=== PATIENT | male | born 1975 | race Caucasian/White ===

== ENCOUNTER 2021-10-01 17:22 | Inpatient (IN) | payer MEDICARE, OTHER ==
[~2021-10-01] VITALS: Ht 182.9 cm; Wt 146.5 kg
[2021-10-01 18:31] LABS: BASOPHILS % (AUTO) 0.3 % (0.0-2.0); EOSINOPHILS % (AUTO) 0.4 % (0.0-6.0); HEMATOCRIT 37 % (39-51); HEMOGLOBIN 11.9 g/dL (13.5-17.5); LYMPHOCYTES # (AUTO) 0.4 K/uL (0.8-4.8); LYMPHOCYTES % (AUTO) 5.4 % (20.0-44.0); MEAN CORPUSCULAR HGB CONC 32 g/dl (31.0-36.0); MEAN CORPUSCULAR VOLUME 92 fL (80-96); MONOCYTES # (AUTO) 0.7 K/uL (0.1-1.30); MONOCYTES % (AUTO) 9.8 % (2.0-12.0); NEUTROPHILS # (AUTO) 6.1 K/uL (1.8-8.9); NEUTROPHILS % (AUTO) 84.1 % (43.0-81.0); PLATELET COUNT (AUTO) 252 K/uL (150-450); RED BLOOD CELL COUNT(AUTO) 4.02 MIL/uL (4.5-6.0); WHITE BLOOD COUNT (AUTO) 7.2 K/uL (4.3-11.0)
[2021-10-01 18:49] LABS: ALBUMIN 2.2 g/dL (3.4-5.0); ALKALINE PHOSPHATASE 101 U/L (46-116); ASPARTATE AMINOTRANSFERASE 11 U/L (15-37); BILIRUBIN,DIRECT 1.1 mg/dL (0.0-0.2); BILIRUBIN,TOTAL 1.8 mg/dL (0.2-1.0); CALCIUM, SERUM 8.7 mg/dL (8.5-10.1); CARBON DIOXIDE 27 mmol/L (21-32); CHLORIDE 104 mmol/L (98-107); CREATININE 3.2 mg/dL (0.6-1.3); GLUCOSE 84 mg/dL (74-106); LIPASE 19 U/L (73-393); POTASSIUM 3.4 mmol/L (3.5-5.1); SODIUM SERUM 134 mmol/L (136-145); TOTAL PROTEIN, SERUM 7.5 g/dL (6.4-8.2); UREA NITROGEN, BLOOD 17 mg/dL (7-18)
[2021-10-01 19:03] LABS: ALANINE AMINOTRANSFERASE < 6 U/L (12-78)
[2021-10-01] MEDS ORDERED: Z GUARD REMEDY 4 OZ OINT TP PRN (21:30)
[2021-10-02] MEDS ORDERED: LORAZEPAM INJ 2 MG/ML VIAL ONE (02:28)
[2021-10-02] MEDS ORDERED: LORAZEPAM INJ 2 MG/ML VIAL IV ONE (02:30)
[2021-10-02] MEDS ORDERED: PIPERACILLIN /TAZOBACTAM 3.375 G VIAL IV ONE (02:42)
[2021-10-02] MEDS ORDERED: PIPERACILLIN /TAZOBACTAM 3.375 G in IV D5W 50 ML IV SCH ×2 (03:00→12:00)
[2021-10-02 05:22] LABS: BASOPHILS % (AUTO) 0.7 % (0.0-2.0); EOSINOPHILS % (AUTO) 0.5 % (0.0-6.0); HEMATOCRIT 35 % (39-51); HEMOGLOBIN 11.1 g/dL (13.5-17.5); LYMPHOCYTES # (AUTO) 0.4 K/uL (0.8-4.8); LYMPHOCYTES % (AUTO) 5.8 % (20.0-44.0); MEAN CORPUSCULAR HGB CONC 32 g/dl (31.0-36.0); MEAN CORPUSCULAR VOLUME 93 fL (80-96); MONOCYTES # (AUTO) 0.7 K/uL (0.1-1.30); MONOCYTES % (AUTO) 10.9 % (2.0-12.0); NEUTROPHILS % (AUTO) 82.1 % (43.0-81.0); PLATELET COUNT (AUTO) 229 K/uL (150-450); RED BLOOD CELL COUNT(AUTO) 3.81 MIL/uL (4.5-6.0); WHITE BLOOD COUNT (AUTO) 6.1 K/uL (4.3-11.0)
[2021-10-02 05:37] LABS: ALKALINE PHOSPHATASE 94 U/L (46-116); ASPARTATE AMINOTRANSFERASE 12 U/L (15-37); CALCIUM, SERUM 8.6 mg/dL (8.5-10.1); CARBON DIOXIDE 24 mmol/L (21-32); CHLORIDE 104 mmol/L (98-107); CREATININE 3.6 mg/dL (0.6-1.3); GLUCOSE 90 mg/dL (74-106); MAGNESIUM 2.3 mg/dL (1.8-2.4); PHOSPHORUS 1.7 mg/dL (2.5-4.9); POTASSIUM 3.3 mmol/L (3.5-5.1); SODIUM SERUM 134 mmol/L (136-145); TOTAL PROTEIN, SERUM 6.9 g/dL (6.4-8.2); UREA NITROGEN, BLOOD 21 mg/dL (7-18)
[2021-10-02 05:57] LABS: ALANINE AMINOTRANSFERASE < 6 U/L (12-78)
[2021-10-02] MEDS ORDERED: IPRA3AMP23 IH (08:44)
[2021-10-02] MEDS ORDERED: CALC1TAB30 PO (08:44)
[2021-10-02] MEDS ORDERED: CHOL200013 PO (08:44)
[2021-10-02] MEDS ORDERED: MONT10TA22 PO (08:44)
[2021-10-02] MEDS ORDERED: POLY17PO4 PO (08:44)
[2021-10-02] MEDS ORDERED: GLYC2TAB21 PO (08:44)
[2021-10-02] MEDS ORDERED: FOLI0.8C PO (08:44)
[2021-10-02] MEDS ORDERED: FAMO20TA8 PO (08:44)
[2021-10-02] MEDS ORDERED: METO25TA4 PO (08:44)
[2021-10-02] MEDS ORDERED: SEVE800T8 PO (08:44)
[2021-10-02] MEDS ORDERED: VIT1TABL46 PO (08:44)
[2021-10-02] MEDS ORDERED: BUPR100T5 PO (08:44)
[2021-10-02] MEDS ORDERED: SERT100T PO (08:44)
[2021-10-02] MEDS ORDERED: FERR325T23 PO (08:44)
[2021-10-02] MEDS ORDERED: FAMOTIDINE/PF INJ 20 MG/2 ML VIAL IV SCH (09:00)
[2021-10-02] MEDS ORDERED: FAMOTIDINE/PF INJ 20 MG/2 ML VIAL IV ONE (09:04)
[2021-10-02] MEDS ORDERED: HEPARIN SODIUM, PORCINE 5000 UNITS/1 ML VIAL ONE (09:04)
[2021-10-02] MEDS: ZOSYN IVPB 2.25 G in IV D5W 50ml IV SCH ×3 (09:12→21:00)
[2021-10-02] MEDS: HEPARIN SODIUM, PORCINE 5000 UNITS/1 ML VIAL SQ SCH ×2 (09:13→21:00)
[2021-10-02] MEDS ORDERED: POTASSIUM CHLORIDE 20 MEQ TAB.PRT.SR PO ONE ×2 (11:22→11:30)
[2021-10-02] MEDS: METOPROLOL SUCCINATE 25 MG TAB.SR.24H PO SCH (11:24)
[2021-10-02] MEDS ORDERED: Medication Not On Formulary EA (Ipratropium/Albuterol Sulfate (Duoneb 2.5-0.5 Mg/3 Ml So IH SCH (12:00)
[2021-10-02] MEDS: ACETYLCYSTEINE 10% SOLN 400 MG/4 ML VIAL NEB SCH ×3 (12:53→19:59)
[2021-10-02] MEDS: ALBUTEROL FS 2.5 MG/3 ML VIAL.NEB NEB SCH ×2 (14:37→19:59)
[2021-10-02] MEDS: IPRATROPIUM NEB FS 0.5 MG/2.5 ML AMPUL.NEB NEB SCH ×2 (14:37→19:59)
[2021-10-02 16:00] VITALS: BP 132/77
[2021-10-02] MEDS ORDERED: Medication Not On Formulary EA (Glycopyrrolate 1 MG) PO SCH (17:00)
[2021-10-02] MEDS: GLYCOPYRROLATE 1 MG TABLET PO SCH (17:03)
[2021-10-02 20:00] VITALS: BP_SYST 114; BP_SYST 120; BP_DIAS 85; BP_DIAS 90
[2021-10-02] MEDS: MONTELUKAST SODIUM (10MG) 10 MG TABLET PO SCH (21:06)
[2021-10-02] MEDS ORDERED: ALTEPLASE CATHFLO 2 MG/VIAL XX ONE (21:30)
[2021-10-03] VITALS: BP_SYST 109; BP_SYST 118; BP_DIAS 72
[2021-10-03] MEDS: ACETYLCYSTEINE 10% SOLN 400 MG/4 ML VIAL NEB SCH ×4 (02:00→20:21)
[2021-10-03] MEDS: ALBUTEROL FS 2.5 MG/3 ML VIAL.NEB NEB SCH ×4 (02:00→20:21)
[2021-10-03] MEDS: IPRATROPIUM NEB FS 0.5 MG/2.5 ML AMPUL.NEB NEB SCH ×4 (02:01→20:21)
[2021-10-03] MEDS: ZOSYN IVPB 2.25 G in IV D5W 50ml IV SCH ×4 (03:21→21:43)
[2021-10-03 04:00] VITALS: BP 113/82
[2021-10-03] MEDS: ONDANSETRON HCL/PF 4 MG/2 ML VIAL IVP PRN ×2 (05:14→17:10)
[2021-10-03 07:10] LABS: BASOPHILS # (AUTO) 0.1 K/uL (0.0-0.2); BASOPHILS % (AUTO) 0.9 % (0.0-2.0); EOSINOPHILS % (AUTO) 0.7 % (0.0-6.0); HEMATOCRIT 34 % (39-51); LYMPHOCYTES # (AUTO) 0.4 K/uL (0.8-4.8); LYMPHOCYTES % (AUTO) 4.7 % (20.0-44.0); MEAN CORPUSCULAR HGB CONC 32 g/dl (31.0-36.0); MEAN CORPUSCULAR VOLUME 92 fL (80-96); MONOCYTES # (AUTO) 0.8 K/uL (0.1-1.30); MONOCYTES % (AUTO) 10.1 % (2.0-12.0); NEUTROPHILS # (AUTO) 6.7 K/uL (1.8-8.9); NEUTROPHILS % (AUTO) 83.6 % (43.0-81.0); PLATELET COUNT (AUTO) 246 K/uL (150-450); RED BLOOD CELL COUNT(AUTO) 3.72 MIL/uL (4.5-6.0)
[2021-10-03 07:19] LABS: CALCIUM, SERUM 8.9 mg/dL (8.5-10.1); CREATININE 4.2 mg/dL (0.6-1.3); MAGNESIUM 2.3 mg/dL (1.8-2.4); PHOSPHORUS 1.8 mg/dL (2.5-4.9); POTASSIUM 3.3 mmol/L (3.5-5.1)
[2021-10-03 08:00] VITALS: BP 112/67
[2021-10-03] MEDS ORDERED: SERTRALINE HCL 150 MG PO SCH (09:00)
[2021-10-03] MEDS ORDERED: CHOLECALCIFEROL PO SCH (09:00)
[2021-10-03] MEDS ORDERED: Medication Not On Formulary EA (Calcium Carbonate/Vitamin D3 (Os-Cal 500+D Tablet) 1 EAC PO SCH (09:00)
[2021-10-03] MEDS: HEPARIN SODIUM, PORCINE 5000 UNITS/1 ML VIAL SQ SCH ×2 (09:19→21:00)
[2021-10-03] MEDS: buPROPion 75 MG TABLET PO SCH (09:20)
[2021-10-03] MEDS: GLYCOPYRROLATE 1 MG TABLET PO SCH ×2 (09:20→16:00)
[2021-10-03] MEDS: POLYETHYLENE GLYCOL 3350 17 GM POWD.PACK PO SCH (09:21)
[2021-10-03] MEDS: VIT B CMPLX 3/FA/VIT C/BIOTIN 1 TAB TABLET PO SCH (09:21)
[2021-10-03] MEDS: SERTRALINE HCL 50 MG TABLET PO SCH (09:21)
[2021-10-03] MEDS: CALCIUM CARB 250MG /VITAMIN D 1 UDTAB PO SCH (09:22)
[2021-10-03] MEDS: FAMOTIDINE (20 MG) 20 MG TABLET PO SCH (09:22)
[2021-10-03] MEDS: FOLIC ACID 1 MG TABLET PO SCH (09:22)
[2021-10-03] MEDS: CHOLECALCIFEROL 1,000 UNIT TABLET (VIT D3) PO SCH (09:24)
[2021-10-03] MEDS: FERROUS SULFATE (325 MG) 325 MG/TAB TABLET PO SCH (09:27)
[2021-10-03] MEDS ORDERED: K PHOS NEUTRAL 250 MG TABLET PO ONE (11:00)
[2021-10-03] MEDS ORDERED: POTASSIUM PHOSPHATE MM 15 MMOL in IV NS 0.9% 250 ML IV SCH (11:00)
[2021-10-03 12:00] VITALS: BP 111/67
[2021-10-03 16:00] VITALS: BP 131/72
[2021-10-03 20:00] VITALS: BP 125/56
[2021-10-03] MEDS: MONTELUKAST SODIUM (10MG) 10 MG TABLET PO SCH (21:43)
[2021-10-04] VITALS: BP 132/66
[2021-10-04] MEDS: ALBUTEROL FS 2.5 MG/3 ML VIAL.NEB NEB SCH ×4 (01:42→20:38)
[2021-10-04] MEDS: ACETYLCYSTEINE 10% SOLN 400 MG/4 ML VIAL NEB SCH ×4 (01:42→20:37)
[2021-10-04] MEDS: IPRATROPIUM NEB FS 0.5 MG/2.5 ML AMPUL.NEB NEB SCH ×4 (01:43→20:37)
[2021-10-04] MEDS: ZOSYN IVPB 2.25 G in IV D5W 50ml IV SCH ×4 (02:57→21:23)
[2021-10-04 04:00] VITALS: BP 119/71
[2021-10-04 08:00] VITALS: BP 113/52
[2021-10-04 08:11] LABS: CALCIUM, SERUM 8.8 mg/dL (8.5-10.1); CREATININE 4.7 mg/dL (0.6-1.3); PHOSPHORUS 2.1 mg/dL (2.5-4.9); POTASSIUM 3.5 mmol/L (3.5-5.1)
[2021-10-04] MEDS: HEPARIN SODIUM, PORCINE 5000 UNITS/1 ML VIAL SQ SCH ×2 (08:18→21:00)
[2021-10-04] MEDS: VIT B CMPLX 3/FA/VIT C/BIOTIN 1 TAB TABLET PO SCH (08:19)
[2021-10-04] MEDS: SERTRALINE HCL 50 MG TABLET PO SCH (08:19)
[2021-10-04] MEDS: CALCIUM CARB 250MG /VITAMIN D 1 UDTAB PO SCH (08:19)
[2021-10-04] MEDS: POLYETHYLENE GLYCOL 3350 17 GM POWD.PACK PO SCH (08:19)
[2021-10-04] MEDS: FERROUS SULFATE (325 MG) 325 MG/TAB TABLET PO SCH (08:19)
[2021-10-04] MEDS: CHOLECALCIFEROL 1,000 UNIT TABLET (VIT D3) PO SCH (08:19)
[2021-10-04] MEDS: FAMOTIDINE (20 MG) 20 MG TABLET PO SCH (08:20)
[2021-10-04] MEDS: FOLIC ACID 1 MG TABLET PO SCH (08:20)
[2021-10-04] MEDS: METOPROLOL SUCCINATE 25 MG TAB.SR.24H PO SCH (08:20)
[2021-10-04] MEDS: GLYCOPYRROLATE 1 MG TABLET PO SCH ×2 (08:21→16:14)
[2021-10-04] MEDS: buPROPion 75 MG TABLET PO SCH (08:21)
[2021-10-04 09:11] LABS: BASOPHILS # (AUTO) 0.1 K/uL (0.0-0.2); BASOPHILS % (AUTO) 0.9 % (0.0-2.0); EOSINOPHILS % (AUTO) 1.3 % (0.0-6.0); HEMATOCRIT 33 % (39-51); HEMOGLOBIN 10.3 g/dL (13.5-17.5); LYMPHOCYTES # (AUTO) 0.4 K/uL (0.8-4.8); LYMPHOCYTES % (AUTO) 5.5 % (20.0-44.0); MEAN CORPUSCULAR HGB CONC 31 g/dl (31.0-36.0); MEAN CORPUSCULAR VOLUME 92 fL (80-96); MONOCYTES # (AUTO) 0.7 K/uL (0.1-1.30); MONOCYTES % (AUTO) 10.7 % (2.0-12.0); NEUTROPHILS # (AUTO) 5.5 K/uL (1.8-8.9); NEUTROPHILS % (AUTO) 81.6 % (43.0-81.0); PLATELET COUNT (AUTO) 221 K/uL (150-450); RED BLOOD CELL COUNT(AUTO) 3.55 MIL/uL (4.5-6.0); WHITE BLOOD COUNT (AUTO) 6.8 K/uL (4.3-11.0)
[2021-10-04] MEDS: POTASSIUM PHOSPHATE MM 15 MMOL in IV NS 0.9% 250 ML IV SCH ×2 (10:50→13:54)
[2021-10-04 12:00] VITALS: BP 125/69
[2021-10-04] MEDS ORDERED: ALBUMIN 25% 25 GM in PREMIX 1 EA IV STA (13:03)
[2021-10-04] MEDS: ONDANSETRON HCL/PF 4 MG/2 ML VIAL IVP PRN (14:32)
[2021-10-04 16:00] VITALS: BP 105/69
[2021-10-04] MEDS: CLOTRIMAZOLE 1% 15 GM TUBE TP SCH (16:14)
[2021-10-04 20:00] VITALS: BP 120/67
[2021-10-04] MEDS: MONTELUKAST SODIUM (10MG) 10 MG TABLET PO SCH (21:24)
[2021-10-05] VITALS: BP 115/69
[2021-10-05] MEDS: ALBUTEROL FS 2.5 MG/3 ML VIAL.NEB NEB SCH ×4 (02:25→21:03)
[2021-10-05] MEDS: IPRATROPIUM NEB FS 0.5 MG/2.5 ML AMPUL.NEB NEB SCH ×4 (02:25→21:03)
[2021-10-05] MEDS: ACETYLCYSTEINE 10% SOLN 400 MG/4 ML VIAL NEB SCH ×4 (02:26→21:03)
[2021-10-05] MEDS: ZOSYN IVPB 2.25 G in IV D5W 50ml IV SCH ×4 (03:11→21:14)
[2021-10-05 04:00] VITALS: BP 117/61
[2021-10-05 07:23] LABS: BASOPHILS # (AUTO) 0.1 K/uL (0.0-0.2); BASOPHILS % (AUTO) 0.8 % (0.0-2.0); EOSINOPHILS % (AUTO) 1.4 % (0.0-6.0); HEMATOCRIT 32 % (39-51); HEMOGLOBIN 10.3 g/dL (13.5-17.5); LYMPHOCYTES # (AUTO) 0.4 K/uL (0.8-4.8); LYMPHOCYTES % (AUTO) 5.2 % (20.0-44.0); MEAN CORPUSCULAR HGB CONC 33 g/dl (31.0-36.0); MEAN CORPUSCULAR VOLUME 92 fL (80-96); MONOCYTES # (AUTO) 0.9 K/uL (0.1-1.30); MONOCYTES % (AUTO) 12.4 % (2.0-12.0); NEUTROPHILS # (AUTO) 5.9 K/uL (1.8-8.9); NEUTROPHILS % (AUTO) 80.2 % (43.0-81.0); PLATELET COUNT (AUTO) 250 K/uL (150-450); RED BLOOD CELL COUNT(AUTO) 3.42 MIL/uL (4.5-6.0); WHITE BLOOD COUNT (AUTO) 7.4 K/uL (4.3-11.0)
[2021-10-05 07:38] LABS: BILIRUBIN,TOTAL 1.8 mg/dL (0.2-1.0); CALCIUM, SERUM 8.4 mg/dL (8.5-10.1); CREATININE 4.3 mg/dL (0.6-1.3); POTASSIUM 3.6 mmol/L (3.5-5.1); TOTAL PROTEIN, SERUM 6.6 g/dL (6.4-8.2)
[2021-10-05 08:00] VITALS: BP 100/53
[2021-10-05] MEDS: HEPARIN SODIUM, PORCINE 5000 UNITS/1 ML VIAL SQ SCH ×2 (09:00→21:17)
[2021-10-05] MEDS: buPROPion 75 MG TABLET PO SCH (09:00)
[2021-10-05] MEDS: FOLIC ACID 1 MG TABLET PO SCH (09:00)
[2021-10-05] MEDS: SERTRALINE HCL 50 MG TABLET PO SCH (09:00)
[2021-10-05] MEDS: POLYETHYLENE GLYCOL 3350 17 GM POWD.PACK PO SCH (09:00)
[2021-10-05] MEDS: VIT B CMPLX 3/FA/VIT C/BIOTIN 1 TAB TABLET PO SCH (09:00)
[2021-10-05] MEDS: FERROUS SULFATE (325 MG) 325 MG/TAB TABLET PO SCH (09:00)
[2021-10-05] MEDS: CHOLECALCIFEROL 1,000 UNIT TABLET (VIT D3) PO SCH (09:00)
[2021-10-05] MEDS: FAMOTIDINE (20 MG) 20 MG TABLET PO SCH (09:00)
[2021-10-05] MEDS: CALCIUM CARB 250MG /VITAMIN D 1 UDTAB PO SCH (09:00)
[2021-10-05] MEDS: GLYCOPYRROLATE 1 MG TABLET PO SCH ×2 (09:00→16:12)
[2021-10-05] MEDS: CLOTRIMAZOLE 1% 15 GM TUBE TP SCH ×2 (10:50→16:24)
[2021-10-05 12:00] VITALS: BP 106/63
[2021-10-05 16:00] VITALS: BP 108/56
[2021-10-05 20:00] VITALS: BP 112/53
[2021-10-05] MEDS: MONTELUKAST SODIUM (10MG) 10 MG TABLET PO SCH (21:17)
[2021-10-06] MEDS: ACETYLCYSTEINE 10% SOLN 400 MG/4 ML VIAL NEB SCH ×4 (01:30→19:30)
[2021-10-06] MEDS: IPRATROPIUM NEB FS 0.5 MG/2.5 ML AMPUL.NEB NEB SCH ×4 (01:30→19:30)
[2021-10-06] MEDS: ALBUTEROL FS 2.5 MG/3 ML VIAL.NEB NEB SCH ×4 (01:30→19:30)
[2021-10-06] MEDS: ZOSYN IVPB 2.25 G in IV D5W 50ml IV SCH ×4 (02:34→20:05)
[2021-10-06 07:13] LABS: ALANINE AMINOTRANSFERASE < 6 U/L (12-78); ALBUMIN 1.6 g/dL (3.4-5.0); ALKALINE PHOSPHATASE 65 U/L (46-116); ASPARTATE AMINOTRANSFERASE 10 U/L (15-37); BILIRUBIN,TOTAL 1.6 mg/dL (0.2-1.0); CARBON DIOXIDE 26 mmol/L (21-32); CHLORIDE 103 mmol/L (98-107); CREATININE 4.9 mg/dL (0.6-1.3); GLUCOSE 81 mg/dL (74-106); MAGNESIUM 2.2 mg/dL (1.8-2.4); PHOSPHORUS 2.9 mg/dL (2.5-4.9); POTASSIUM 3.4 mmol/L (3.5-5.1); SODIUM SERUM 136 mmol/L (136-145); TOTAL PROTEIN, SERUM 5.6 g/dL (6.4-8.2); UREA NITROGEN, BLOOD 35 mg/dL (7-18)
[2021-10-06 07:15] LABS: BASOPHILS # (AUTO) 0.1 K/uL (0.0-0.2); BASOPHILS % (AUTO) 0.9 % (0.0-2.0); EOSINOPHILS % (AUTO) 1.3 % (0.0-6.0); HEMATOCRIT 30 % (39-51); HEMOGLOBIN 9.7 g/dL (13.5-17.5); LYMPHOCYTES # (AUTO) 0.4 K/uL (0.8-4.8); LYMPHOCYTES % (AUTO) 6.3 % (20.0-44.0); MEAN CORPUSCULAR HGB CONC 33 g/dl (31.0-36.0); MEAN CORPUSCULAR VOLUME 91 fL (80-96); MONOCYTES # (AUTO) 0.8 K/uL (0.1-1.30); MONOCYTES % (AUTO) 13.8 % (2.0-12.0); NEUTROPHILS # (AUTO) 4.7 K/uL (1.8-8.9); NEUTROPHILS % (AUTO) 77.7 % (43.0-81.0); PLATELET COUNT (AUTO) 209 K/uL (150-450); RED BLOOD CELL COUNT(AUTO) 3.24 MIL/uL (4.5-6.0); WHITE BLOOD COUNT (AUTO) 6.1 K/uL (4.3-11.0)
[2021-10-06 08:00] VITALS: BP 142/60
[2021-10-06] MEDS: CHOLECALCIFEROL 1,000 UNIT TABLET (VIT D3) PO SCH (09:22)
[2021-10-06] MEDS: CALCIUM CARB 250MG /VITAMIN D 1 UDTAB PO SCH (09:23)
[2021-10-06] MEDS: FOLIC ACID 1 MG TABLET PO SCH (09:23)
[2021-10-06] MEDS: VIT B CMPLX 3/FA/VIT C/BIOTIN 1 TAB TABLET PO SCH (09:23)
[2021-10-06] MEDS: FERROUS SULFATE (325 MG) 325 MG/TAB TABLET PO SCH (09:23)
[2021-10-06] MEDS: SERTRALINE HCL 50 MG TABLET PO SCH (09:23)
[2021-10-06] MEDS: buPROPion 75 MG TABLET PO SCH (09:23)
[2021-10-06] MEDS: FAMOTIDINE (20 MG) 20 MG TABLET PO SCH (09:23)
[2021-10-06] MEDS: GLYCOPYRROLATE 1 MG TABLET PO SCH ×2 (09:23→17:09)
[2021-10-06] MEDS: POLYETHYLENE GLYCOL 3350 17 GM POWD.PACK PO SCH (09:24)
[2021-10-06] MEDS: HEPARIN SODIUM, PORCINE 5000 UNITS/1 ML VIAL SQ SCH ×2 (09:25→20:09)
[2021-10-06] MEDS: CLOTRIMAZOLE 1% 15 GM TUBE TP SCH ×2 (09:28→17:11)
[2021-10-06] MEDS: METOPROLOL SUCCINATE 25 MG TAB.SR.24H PO SCH (09:31)
[2021-10-06 12:00] VITALS: BP 109/52
[2021-10-06 19:04] VITALS: BP 106/50
[2021-10-06 20:00] VITALS: BP 117/60
[2021-10-06] MEDS ORDERED: ALBUMIN 25% 25 GM in PREMIX 1 EA IV ONE (22:30)
[2021-10-06] MEDS ORDERED: ALBUMIN 25% 100 ML IV ONE (22:32)
[2021-10-07] MEDS: MONTELUKAST SODIUM (10MG) 10 MG TABLET PO SCH ×2 (01:07→21:07)
[2021-10-07] MEDS: ACETAMINOPHEN 325 MG TABLET PO PRN (01:07)
[2021-10-07] MEDS: IPRATROPIUM NEB FS 0.5 MG/2.5 ML AMPUL.NEB NEB SCH ×4 (01:28→19:30)
[2021-10-07] MEDS: ACETYLCYSTEINE 10% SOLN 400 MG/4 ML VIAL NEB SCH ×4 (01:28→19:30)
[2021-10-07] MEDS: ALBUTEROL FS 2.5 MG/3 ML VIAL.NEB NEB SCH ×4 (01:28→19:30)
[2021-10-07] MEDS: ZOSYN IVPB 2.25 G in IV D5W 50ml IV SCH ×4 (03:44→20:33)
[2021-10-07 07:15] LABS: CALCIUM, SERUM 8.7 mg/dL (8.5-10.1); MAGNESIUM 2.3 mg/dL (1.8-2.4); PHOSPHORUS 2.8 mg/dL (2.5-4.9); POTASSIUM 3.4 mmol/L (3.5-5.1)
[2021-10-07 07:35] LABS: BASOPHILS # (AUTO) 0.1 K/uL (0.0-0.2); BASOPHILS % (AUTO) 1.1 % (0.0-2.0); EOSINOPHILS % (AUTO) 1.1 % (0.0-6.0); HEMATOCRIT 29 % (39-51); HEMOGLOBIN 9.4 g/dL (13.5-17.5); LYMPHOCYTES # (AUTO) 0.4 K/uL (0.8-4.8); LYMPHOCYTES % (AUTO) 5.5 % (20.0-44.0); MEAN CORPUSCULAR HGB CONC 33 g/dl (31.0-36.0); MEAN CORPUSCULAR VOLUME 92 fL (80-96); MONOCYTES # (AUTO) 0.8 K/uL (0.1-1.30); MONOCYTES % (AUTO) 12.6 % (2.0-12.0); NEUTROPHILS # (AUTO) 5.1 K/uL (1.8-8.9); NEUTROPHILS % (AUTO) 79.7 % (43.0-81.0); PLATELET COUNT (AUTO) 193 K/uL (150-450); RED BLOOD CELL COUNT(AUTO) 3.13 MIL/uL (4.5-6.0); WHITE BLOOD COUNT (AUTO) 6.5 K/uL (4.3-11.0)
[2021-10-07 08:00] VITALS: BP 101/54
[2021-10-07] MEDS: POLYETHYLENE GLYCOL 3350 17 GM POWD.PACK PO SCH (09:10)
[2021-10-07] MEDS: SERTRALINE HCL 50 MG TABLET PO SCH (09:10)
[2021-10-07] MEDS: VIT B CMPLX 3/FA/VIT C/BIOTIN 1 TAB TABLET PO SCH (09:11)
[2021-10-07] MEDS: FOLIC ACID 1 MG TABLET PO SCH (09:11)
[2021-10-07] MEDS: buPROPion 75 MG TABLET PO SCH (09:11)
[2021-10-07] MEDS: FERROUS SULFATE (325 MG) 325 MG/TAB TABLET PO SCH (09:11)
[2021-10-07] MEDS: CALCIUM CARB 250MG /VITAMIN D 1 UDTAB PO SCH (09:11)
[2021-10-07] MEDS: CHOLECALCIFEROL 1,000 UNIT TABLET (VIT D3) PO SCH (09:11)
[2021-10-07] MEDS: GLYCOPYRROLATE 1 MG TABLET PO SCH ×2 (09:11→17:20)
[2021-10-07] MEDS: FAMOTIDINE (20 MG) 20 MG TABLET PO SCH (09:11)
[2021-10-07] MEDS: HEPARIN SODIUM, PORCINE 5000 UNITS/1 ML VIAL SQ SCH (09:14)
[2021-10-07] MEDS: CLOTRIMAZOLE 1% 15 GM TUBE TP SCH ×2 (09:50→17:20)
[2021-10-07] MEDS ORDERED: POTASSIUM CHLORIDE 20 MEQ TAB.PRT.SR PO ONE (13:00)
[2021-10-07 18:08] LABS: THYROID STIMULATING HORMONE 1.736 uIU/mL (0.358-3.74)
[2021-10-07 20:00] VITALS: BP 110/62
[2021-10-08] VITALS (25 sets, daily range): BP systolic 91–137; BP diastolic 41–73
[2021-10-08] MEDS: IPRATROPIUM NEB FS 0.5 MG/2.5 ML AMPUL.NEB NEB SCH ×4 (02:13→19:26)
[2021-10-08] MEDS: ALBUTEROL FS 2.5 MG/3 ML VIAL.NEB NEB SCH ×4 (02:13→19:26)
[2021-10-08] MEDS: ACETYLCYSTEINE 10% SOLN 400 MG/4 ML VIAL NEB SCH ×4 (02:14→19:26)
[2021-10-08] MEDS: ZOSYN IVPB 2.25 G in IV D5W 50ml IV SCH ×4 (03:35→20:55)
[2021-10-08 07:42] LABS: BASOPHILS % (AUTO) 0.6 % (0.0-2.0); EOSINOPHILS % (AUTO) 0.8 % (0.0-6.0); HEMATOCRIT 31 % (39-51); HEMOGLOBIN 9.7 g/dL (13.5-17.5); LYMPHOCYTES # (AUTO) 0.2 K/uL (0.8-4.8); LYMPHOCYTES % (AUTO) 3.5 % (20.0-44.0); MEAN CORPUSCULAR HGB CONC 32 g/dl (31.0-36.0); MEAN CORPUSCULAR VOLUME 93 fL (80-96); MONOCYTES # (AUTO) 0.9 K/uL (0.1-1.30); MONOCYTES % (AUTO) 12.6 % (2.0-12.0); NEUTROPHILS # (AUTO) 5.6 K/uL (1.8-8.9); NEUTROPHILS % (AUTO) 82.5 % (43.0-81.0); PLATELET COUNT (AUTO) 209 K/uL (150-450); RED BLOOD CELL COUNT(AUTO) 3.28 MIL/uL (4.5-6.0); WHITE BLOOD COUNT (AUTO) 6.8 K/uL (4.3-11.0)
[2021-10-08 08:06] LABS: IMMUNOGLOBULIN A, SERUM 466 mg/dL (90-386); IMMUNOGLOBULIN G, SERUM 1733 mg/dL (603-1613); IMMUNOGLOBULIN M, SERUM 133 mg/dL (20-172)
[2021-10-08] MEDS: GLYCOPYRROLATE 1 MG TABLET PO SCH ×2 (08:08→16:46)
[2021-10-08] MEDS: FERROUS SULFATE (325 MG) 325 MG/TAB TABLET PO SCH (08:09)
[2021-10-08] MEDS: FOLIC ACID 1 MG TABLET PO SCH (08:09)
[2021-10-08] MEDS: FAMOTIDINE (20 MG) 20 MG TABLET PO SCH (08:12)
[2021-10-08] MEDS: SERTRALINE HCL 50 MG TABLET PO SCH (08:12)
[2021-10-08] MEDS: CHOLECALCIFEROL 1,000 UNIT TABLET (VIT D3) PO SCH (08:12)
[2021-10-08] MEDS: CALCIUM CARB 250MG /VITAMIN D 1 UDTAB PO SCH (08:12)
[2021-10-08] MEDS: buPROPion 75 MG TABLET PO SCH (08:12)
[2021-10-08] MEDS: VIT B CMPLX 3/FA/VIT C/BIOTIN 1 TAB TABLET PO SCH (08:12)
[2021-10-08] MEDS: POLYETHYLENE GLYCOL 3350 17 GM POWD.PACK PO SCH (08:12)
[2021-10-08 08:23] LABS: CALCIUM, SERUM 8.4 mg/dL (8.5-10.1); CREATININE 4.4 mg/dL (0.6-1.3); MAGNESIUM 2.2 mg/dL (1.8-2.4); PHOSPHORUS 3.3 mg/dL (2.5-4.9); POTASSIUM 3.3 mmol/L (3.5-5.1)
[2021-10-08] MEDS: CLOTRIMAZOLE 1% 15 GM TUBE TP SCH ×2 (08:32→16:52)
[2021-10-08] MEDS: METOPROLOL SUCCINATE 25 MG TAB.SR.24H PO SCH (09:05)
[2021-10-08] MEDS ORDERED: ANESTHESIA TRAY IN PYXIS 1 EA TRAY MC ONE (09:42)
[2021-10-08] MEDS ORDERED: LIDOCAINE 5% OINT 35.44 GM TUBE ONE (09:43)
[2021-10-08] MEDS ORDERED: POTASSIUM CHLORIDE 20 MEQ TAB.PRT.SR PO SCH (10:30)
[2021-10-08 12:07] LABS: *SPE A/G RATIO 0.6 (0.7-1.7); *SPE ALPHA-1-GLOBULIN 0.3 g/dL (0.0-0.4); *SPE ALPHA-2-GLOBULIN 0.6 g/dL (0.4-1.0); *SPE BETA GLOBULIN 0.6 g/dL (0.7-1.3); *SPE M-SPIKE Not Observed g/dL (Not Observed)
[2021-10-08] MEDS ORDERED: ROCURONIUM BROMIDE 50 MG/5 ML ONE (12:33)
[2021-10-08] MEDS ORDERED: MIDAZOLAM HCL 2 MG/2ML VIAL ONE ×2 (12:33→12:42)
[2021-10-08] MEDS ORDERED: SODIUM BICARBONATE SYR 50 MEQ/50 ML DISP.SYRIN IV ONE (15:22)
[2021-10-08] MEDS ORDERED: EPINEPHRINE (1:10,000) SYRINGE 1 MG/10 ML DISP.SYRIN IVP ONE (15:22)
[2021-10-08] MEDS: MONTELUKAST SODIUM (10MG) 10 MG TABLET PO SCH (21:33)
[2021-10-09] VITALS (32 sets, daily range): BP systolic 66–143; BP diastolic 40–123
[2021-10-09] MEDS: ACETYLCYSTEINE 10% SOLN 400 MG/4 ML VIAL NEB SCH ×4 (01:05→19:51)
[2021-10-09] MEDS: ALBUTEROL FS 2.5 MG/3 ML VIAL.NEB NEB SCH ×4 (01:05→19:51)
[2021-10-09] MEDS: IPRATROPIUM NEB FS 0.5 MG/2.5 ML AMPUL.NEB NEB SCH ×4 (01:05→19:51)
[2021-10-09] MEDS: ZOSYN IVPB 2.25 G in IV D5W 50ml IV SCH ×4 (03:04→21:00)
[2021-10-09 05:20] LABS: BASOPHILS # (AUTO) 0.1 K/uL (0.0-0.2); BASOPHILS % (AUTO) 0.9 % (0.0-2.0); HEMATOCRIT 29 % (39-51); HEMOGLOBIN 9.6 g/dL (13.5-17.5); LYMPHOCYTES # (AUTO) 0.3 K/uL (0.8-4.8); LYMPHOCYTES % (AUTO) 4.4 % (20.0-44.0); MEAN CORPUSCULAR HGB CONC 33 g/dl (31.0-36.0); MEAN CORPUSCULAR VOLUME 92 fL (80-96); MONOCYTES # (AUTO) 0.9 K/uL (0.1-1.30); MONOCYTES % (AUTO) 14.7 % (2.0-12.0); NEUTROPHILS # (AUTO) 4.7 K/uL (1.8-8.9); PLATELET COUNT (AUTO) 207 K/uL (150-450); RED BLOOD CELL COUNT(AUTO) 3.15 MIL/uL (4.5-6.0); WHITE BLOOD COUNT (AUTO) 5.9 K/uL (4.3-11.0)
[2021-10-09 05:23] LABS: CALCIUM, SERUM 8.2 mg/dL (8.5-10.1); CREATININE 3.8 mg/dL (0.6-1.3); PHOSPHORUS 2.8 mg/dL (2.5-4.9); POTASSIUM 3.3 mmol/L (3.5-5.1)
[2021-10-09] MEDS: VIT B CMPLX 3/FA/VIT C/BIOTIN 1 TAB TABLET PO SCH (08:37)
[2021-10-09] MEDS: FAMOTIDINE (20 MG) 20 MG TABLET PO SCH (08:37)
[2021-10-09] MEDS: CHOLECALCIFEROL 1,000 UNIT TABLET (VIT D3) PO SCH (08:37)
[2021-10-09] MEDS: CALCIUM CARB 250MG /VITAMIN D 1 UDTAB PO SCH (08:37)
[2021-10-09] MEDS: GLYCOPYRROLATE 1 MG TABLET PO SCH ×2 (08:37→18:06)
[2021-10-09] MEDS: FERROUS SULFATE (325 MG) 325 MG/TAB TABLET PO SCH (08:37)
[2021-10-09] MEDS: FOLIC ACID 1 MG TABLET PO SCH (08:37)
[2021-10-09] MEDS: SERTRALINE HCL 50 MG TABLET PO SCH (08:37)
[2021-10-09] MEDS: POLYETHYLENE GLYCOL 3350 17 GM POWD.PACK PO SCH (08:38)
[2021-10-09] MEDS: ONDANSETRON HCL/PF 4 MG/2 ML VIAL IVP PRN (08:38)
[2021-10-09] MEDS: CLOTRIMAZOLE 1% 15 GM TUBE TP SCH ×2 (08:40→17:00)
[2021-10-09] MEDS ORDERED: POTASSIUM CHLORIDE 20 MEQ TAB.PRT.SR PO ONE (11:00)
[2021-10-09] MEDS: buPROPion 75 MG TABLET PO SCH (12:25)
[2021-10-09 20:40] LABS: ABG BASE EXCESS -5.9 mmol/L; ABG OXYGEN SATURATION 96.3 % (92.0-98.5); ABG PH 7.292 (7.350-7.450); ABG PO2 89.8 mmHg (75.0-100.0); COHb 0.2 % (0.5-1.5); O2Hb 96.1 % (94.0-97.0); SITE, ABG Right Radial
[2021-10-09] MEDS: ACETAMINOPHEN 325 MG TABLET PO PRN (21:14)
[2021-10-09] MEDS: MONTELUKAST SODIUM (10MG) 10 MG TABLET PO SCH (21:14)
[2021-10-09] MEDS ORDERED: ZOLPIDEM TARTRATE 5 MG TABLET PO ONE (22:00)
[2021-10-10] VITALS (15 sets, daily range): BP systolic 75–121; BP diastolic 33–74
[2021-10-10] MEDS: ALBUTEROL FS 2.5 MG/3 ML VIAL.NEB NEB SCH ×4 (01:28→19:52)
[2021-10-10] MEDS: ACETYLCYSTEINE 10% SOLN 400 MG/4 ML VIAL NEB SCH ×4 (01:29→19:52)
[2021-10-10] MEDS: IPRATROPIUM NEB FS 0.5 MG/2.5 ML AMPUL.NEB NEB SCH ×4 (01:29→19:52)
[2021-10-10] MEDS: ZOSYN IVPB 2.25 G in IV D5W 50ml IV SCH ×4 (02:07→21:54)
[2021-10-10 06:46] LABS: BASOPHILS # (AUTO) 0.1 K/uL (0.0-0.2); BASOPHILS % (AUTO) 1.1 % (0.0-2.0); EOSINOPHILS % (AUTO) 1.3 % (0.0-6.0); HEMATOCRIT 30 % (39-51); HEMOGLOBIN 9.7 g/dL (13.5-17.5); LYMPHOCYTES # (AUTO) 0.3 K/uL (0.8-4.8); LYMPHOCYTES % (AUTO) 4.6 % (20.0-44.0); MEAN CORPUSCULAR HGB CONC 33 g/dl (31.0-36.0); MEAN CORPUSCULAR VOLUME 92 fL (80-96); MONOCYTES # (AUTO) 0.9 K/uL (0.1-1.30); MONOCYTES % (AUTO) 13.5 % (2.0-12.0); NEUTROPHILS # (AUTO) 5.2 K/uL (1.8-8.9); NEUTROPHILS % (AUTO) 79.5 % (43.0-81.0); PLATELET COUNT (AUTO) 247 K/uL (150-450); RED BLOOD CELL COUNT(AUTO) 3.25 MIL/uL (4.5-6.0); WHITE BLOOD COUNT (AUTO) 6.5 K/uL (4.3-11.0)
[2021-10-10 07:20] LABS: CREATININE 4.3 mg/dL (0.6-1.3); PHOSPHORUS 2.6 mg/dL (2.5-4.9); POTASSIUM 3.2 mmol/L (3.5-5.1)
[2021-10-10] MEDS ORDERED: POTASSIUM CHLORIDE 20 MEQ TAB.PRT.SR PO ONE (08:00)
[2021-10-10] MEDS: FOLIC ACID 1 MG TABLET PO SCH (08:38)
[2021-10-10] MEDS: FERROUS SULFATE (325 MG) 325 MG/TAB TABLET PO SCH (08:38)
[2021-10-10] MEDS: FAMOTIDINE (20 MG) 20 MG TABLET PO SCH (08:38)
[2021-10-10] MEDS: GLYCOPYRROLATE 1 MG TABLET PO SCH ×2 (08:38→16:12)
[2021-10-10] MEDS: CALCIUM CARB 250MG /VITAMIN D 1 UDTAB PO SCH (08:38)
[2021-10-10] MEDS: VIT B CMPLX 3/FA/VIT C/BIOTIN 1 TAB TABLET PO SCH (08:38)
[2021-10-10] MEDS: POLYETHYLENE GLYCOL 3350 17 GM POWD.PACK PO SCH (08:39)
[2021-10-10] MEDS: CHOLECALCIFEROL 1,000 UNIT TABLET (VIT D3) PO SCH (08:39)
[2021-10-10] MEDS: SERTRALINE HCL 50 MG TABLET PO SCH (08:39)
[2021-10-10] MEDS: CLOTRIMAZOLE 1% 15 GM TUBE TP SCH ×2 (08:39→16:12)
[2021-10-10] MEDS: buPROPion 75 MG TABLET PO SCH (08:40)
[2021-10-10] MEDS ORDERED: HYDROCODONE/APAP 5/325MG TABLET PO ONE (12:30)
[2021-10-10] MEDS: ONDANSETRON HCL/PF 4 MG/2 ML VIAL IVP PRN (20:19)
[2021-10-10] MEDS: MONTELUKAST SODIUM (10MG) 10 MG TABLET PO SCH (21:54)
[2021-10-10] MEDS: ACETAMINOPHEN 325 MG TABLET PO PRN (23:56)
[2021-10-11] VITALS: BP 106/59
[2021-10-11] MEDS: IPRATROPIUM NEB FS 0.5 MG/2.5 ML AMPUL.NEB NEB SCH ×4 (01:54→20:14)
[2021-10-11] MEDS: ALBUTEROL FS 2.5 MG/3 ML VIAL.NEB NEB SCH ×4 (01:54→20:14)
[2021-10-11] MEDS: ACETYLCYSTEINE 10% SOLN 400 MG/4 ML VIAL NEB SCH ×4 (01:54→20:14)
[2021-10-11] MEDS: ZOSYN IVPB 2.25 G in IV D5W 50ml IV SCH ×4 (03:25→22:38)
[2021-10-11 04:00] VITALS: BP 122/67
[2021-10-11 07:40] LABS: BASOPHILS # (AUTO) 0.1 K/uL (0.0-0.2); BASOPHILS % (AUTO) 1.3 % (0.0-2.0); EOSINOPHILS % (AUTO) 1.2 % (0.0-6.0); HEMATOCRIT 29 % (39-51); HEMOGLOBIN 9.4 g/dL (13.5-17.5); LYMPHOCYTES # (AUTO) 0.2 K/uL (0.8-4.8); LYMPHOCYTES % (AUTO) 3.8 % (20.0-44.0); MEAN CORPUSCULAR HGB CONC 33 g/dl (31.0-36.0); MEAN CORPUSCULAR VOLUME 91 fL (80-96); MONOCYTES # (AUTO) 0.6 K/uL (0.1-1.30); MONOCYTES % (AUTO) 9.5 % (2.0-12.0); NEUTROPHILS # (AUTO) 5.2 K/uL (1.8-8.9); NEUTROPHILS % (AUTO) 84.2 % (43.0-81.0); PLATELET COUNT (AUTO) 226 K/uL (150-450); RED BLOOD CELL COUNT(AUTO) 3.16 MIL/uL (4.5-6.0); WHITE BLOOD COUNT (AUTO) 6.2 K/uL (4.3-11.0)
[2021-10-11 08:00] VITALS: BP 111/51
[2021-10-11 08:11] LABS: CALCIUM, SERUM 8.3 mg/dL (8.5-10.1); CREATININE 3.8 mg/dL (0.6-1.3); PHOSPHORUS 2.1 mg/dL (2.5-4.9); POTASSIUM 3.2 mmol/L (3.5-5.1)
[2021-10-11] MEDS: CHOLECALCIFEROL 1,000 UNIT TABLET (VIT D3) PO SCH (08:31)
[2021-10-11] MEDS: POLYETHYLENE GLYCOL 3350 17 GM POWD.PACK PO SCH (08:31)
[2021-10-11] MEDS: CALCIUM CARB 250MG /VITAMIN D 1 UDTAB PO SCH (08:31)
[2021-10-11] MEDS: VIT B CMPLX 3/FA/VIT C/BIOTIN 1 TAB TABLET PO SCH (08:31)
[2021-10-11] MEDS: GLYCOPYRROLATE 1 MG TABLET PO SCH ×2 (08:31→16:27)
[2021-10-11] MEDS: buPROPion 75 MG TABLET PO SCH (08:31)
[2021-10-11] MEDS: SERTRALINE HCL 50 MG TABLET PO SCH (08:32)
[2021-10-11] MEDS: FERROUS SULFATE (325 MG) 325 MG/TAB TABLET PO SCH (08:32)
[2021-10-11] MEDS: FOLIC ACID 1 MG TABLET PO SCH (08:32)
[2021-10-11] MEDS: FAMOTIDINE (20 MG) 20 MG TABLET PO SCH (08:32)
[2021-10-11] MEDS: METOPROLOL SUCCINATE 25 MG TAB.SR.24H PO SCH (08:33)
[2021-10-11] MEDS: CLOTRIMAZOLE 1% 15 GM TUBE TP SCH ×2 (08:33→16:27)
[2021-10-11 12:00] VITALS: BP 124/62
[2021-10-11] MEDS ORDERED: POTASSIUM PHOSPHATE MM 7.5 MMOL in IV NS 0.9% 100 ML IV SCH (12:00)
[2021-10-11] MEDS ORDERED: EPOETIN ALFA (10,000 UNIT) 10,000 UNIT/ML VIAL IV ONE (13:00)
[2021-10-11] MEDS ORDERED: NS 0.9% IV ONE ×2 (14:30→19:00)
[2021-10-11] MEDS ORDERED: POTASSIUM PHOSPHATE MM IV ONE ×2 (14:30→19:00)
[2021-10-11 16:00] VITALS: BP 99/60
[2021-10-11 20:00] VITALS: BP 98/59
[2021-10-11] MEDS: MONTELUKAST SODIUM (10MG) 10 MG TABLET PO SCH (20:31)
[2021-10-11] MEDS: ACETAMINOPHEN 325 MG TABLET PO PRN (23:23)
[2021-10-12] VITALS: BP 100/52
[2021-10-12 00:06] LABS: ABG BASE EXCESS -2.4 mmol/L; ABG OXYGEN SATURATION 95.4 % (92.0-98.5); ABG PCO2 35.8 mmHg (35.0-45.0); ABG PH 7.404 (7.350-7.450); ABG PO2 76.1 mmHg (75.0-100.0); AaDO2 95.7 mmHg; COHb 0.7 % (0.5-1.5); MetHb 0.1 % (0.0-1.5); O2Hb 94.6 % (94.0-97.0); SITE, ABG Right Radial
[2021-10-12] MEDS: ONDANSETRON HCL/PF 4 MG/2 ML VIAL IVP PRN (00:23)
[2021-10-12] MEDS: IPRATROPIUM NEB FS 0.5 MG/2.5 ML AMPUL.NEB NEB SCH ×4 (01:58→19:13)
[2021-10-12] MEDS: ALBUTEROL FS 2.5 MG/3 ML VIAL.NEB NEB SCH ×4 (01:58→19:13)
[2021-10-12] MEDS: ACETYLCYSTEINE 10% SOLN 400 MG/4 ML VIAL NEB SCH ×4 (01:58→19:13)
[2021-10-12] MEDS: ZOSYN IVPB 2.25 G in IV D5W 50ml IV SCH ×4 (03:25→20:29)
[2021-10-12 04:00] VITALS: BP 100/59
[2021-10-12 08:00] VITALS: BP 124/50
[2021-10-12] MEDS: VIT B CMPLX 3/FA/VIT C/BIOTIN 1 TAB TABLET PO SCH (08:23)
[2021-10-12] MEDS: POLYETHYLENE GLYCOL 3350 17 GM POWD.PACK PO SCH (08:23)
[2021-10-12] MEDS: GLYCOPYRROLATE 1 MG TABLET PO SCH ×2 (08:23→18:14)
[2021-10-12] MEDS: CHOLECALCIFEROL 1,000 UNIT TABLET (VIT D3) PO SCH (08:23)
[2021-10-12] MEDS: FOLIC ACID 1 MG TABLET PO SCH (08:23)
[2021-10-12] MEDS: SERTRALINE HCL 50 MG TABLET PO SCH (08:23)
[2021-10-12] MEDS: FERROUS SULFATE (325 MG) 325 MG/TAB TABLET PO SCH (08:23)
[2021-10-12] MEDS: CALCIUM CARB 250MG /VITAMIN D 1 UDTAB PO SCH (08:23)
[2021-10-12] MEDS: buPROPion 75 MG TABLET PO SCH (08:24)
[2021-10-12] MEDS: CLOTRIMAZOLE 1% 15 GM TUBE TP SCH ×2 (08:24→18:13)
[2021-10-12] MEDS: FAMOTIDINE (20 MG) 20 MG TABLET PO SCH (08:24)
[2021-10-12 14:15] LABS: BASOPHILS % (AUTO) 0.6 % (0.0-2.0); EOSINOPHILS % (AUTO) 0.3 % (0.0-6.0); HEMATOCRIT 28 % (39-51); HEMOGLOBIN 9.1 g/dL (13.5-17.5); LYMPHOCYTES # (AUTO) 0.3 K/uL (0.8-4.8); LYMPHOCYTES % (AUTO) 3.1 % (20.0-44.0); MEAN CORPUSCULAR HGB CONC 33 g/dl (31.0-36.0); MEAN CORPUSCULAR VOLUME 92 fL (80-96); MONOCYTES # (AUTO) 0.7 K/uL (0.1-1.30); MONOCYTES % (AUTO) 8.9 % (2.0-12.0); NEUTROPHILS # (AUTO) 7.2 K/uL (1.8-8.9); NEUTROPHILS % (AUTO) 87.1 % (43.0-81.0); PLATELET COUNT (AUTO) 209 K/uL (150-450); RED BLOOD CELL COUNT(AUTO) 3.04 MIL/uL (4.5-6.0); WHITE BLOOD COUNT (AUTO) 8.2 K/uL (4.3-11.0)
[2021-10-12 14:29] LABS: CALCIUM, SERUM 7.9 mg/dL (8.5-10.1); CREATININE 3.8 mg/dL (0.6-1.3); MAGNESIUM 1.7 mg/dL (1.8-2.4); PHOSPHORUS 2.1 mg/dL (2.5-4.9); POTASSIUM 3.1 mmol/L (3.5-5.1)
[2021-10-12 16:00] VITALS: BP 106/56
[2021-10-12 20:00] VITALS: BP_SYST 100
[2021-10-12] MEDS: POTASSIUM PHOSPHATE MM 7.5 MMOL in IV NS 0.9% 100 ML IV SCH ×2 (20:21→23:50)
[2021-10-12] MEDS: MONTELUKAST SODIUM (10MG) 10 MG TABLET PO SCH (21:22)
[2021-10-13] VITALS: BP_SYST 103; BP_DIAS 58; BP_DIAS 68
[2021-10-13] MEDS: IPRATROPIUM NEB FS 0.5 MG/2.5 ML AMPUL.NEB NEB SCH ×4 (01:36→20:02)
[2021-10-13] MEDS: ALBUTEROL FS 2.5 MG/3 ML VIAL.NEB NEB SCH ×4 (01:36→20:02)
[2021-10-13] MEDS: ACETYLCYSTEINE 10% SOLN 400 MG/4 ML VIAL NEB SCH ×4 (01:37→20:02)
[2021-10-13] MEDS: ZOSYN IVPB 2.25 G in IV D5W 50ml IV SCH ×2 (02:46→08:57)
[2021-10-13 04:00] VITALS: BP 105/50
[2021-10-13 07:54] LABS: BASOPHILS % (AUTO) 0.6 % (0.0-2.0); EOSINOPHILS % (AUTO) 0.9 % (0.0-6.0); HEMATOCRIT 29 % (39-51); HEMOGLOBIN 9.5 g/dL (13.5-17.5); LYMPHOCYTES # (AUTO) 0.2 K/uL (0.8-4.8); LYMPHOCYTES % (AUTO) 4.2 % (20.0-44.0); MEAN CORPUSCULAR HGB CONC 33 g/dl (31.0-36.0); MEAN CORPUSCULAR VOLUME 92 fL (80-96); MONOCYTES # (AUTO) 0.6 K/uL (0.1-1.30); MONOCYTES % (AUTO) 10.8 % (2.0-12.0); NEUTROPHILS % (AUTO) 83.5 % (43.0-81.0); PLATELET COUNT (AUTO) 217 K/uL (150-450); RED BLOOD CELL COUNT(AUTO) 3.16 MIL/uL (4.5-6.0); WHITE BLOOD COUNT (AUTO) 5.9 K/uL (4.3-11.0)
[2021-10-13 08:00] VITALS: BP 84/57
[2021-10-13 08:09] LABS: CALCIUM, SERUM 8.4 mg/dL (8.5-10.1); MAGNESIUM 1.8 mg/dL (1.8-2.4); PHOSPHORUS 2.7 mg/dL (2.5-4.9); POTASSIUM 3.5 mmol/L (3.5-5.1)
[2021-10-13] MEDS: buPROPion 75 MG TABLET PO SCH (08:55)
[2021-10-13] MEDS: SERTRALINE HCL 50 MG TABLET PO SCH (08:55)
[2021-10-13] MEDS: CALCIUM CARB 250MG /VITAMIN D 1 UDTAB PO SCH (08:55)
[2021-10-13] MEDS: FOLIC ACID 1 MG TABLET PO SCH (08:55)
[2021-10-13] MEDS: FERROUS SULFATE (325 MG) 325 MG/TAB TABLET PO SCH (08:55)
[2021-10-13] MEDS: POLYETHYLENE GLYCOL 3350 17 GM POWD.PACK PO SCH (08:56)
[2021-10-13] MEDS: CHOLECALCIFEROL 1,000 UNIT TABLET (VIT D3) PO SCH (08:56)
[2021-10-13] MEDS: GLYCOPYRROLATE 1 MG TABLET PO SCH ×2 (08:56→16:53)
[2021-10-13] MEDS: FAMOTIDINE (20 MG) 20 MG TABLET PO SCH (08:56)
[2021-10-13] MEDS: VIT B CMPLX 3/FA/VIT C/BIOTIN 1 TAB TABLET PO SCH (08:56)
[2021-10-13] MEDS: CLOTRIMAZOLE 1% 15 GM TUBE TP SCH ×2 (09:32→17:07)
[2021-10-13] MEDS: METOPROLOL SUCCINATE 25 MG TAB.SR.24H PO SCH (09:32)
[2021-10-13] MEDS: ONDANSETRON HCL/PF 4 MG/2 ML VIAL IVP PRN (11:20)
[2021-10-13 12:00] VITALS: BP 108/53
[2021-10-13 16:00] VITALS: BP 98/55
== END 2021-10-13 20:50 | DRG 207 ==
LOC: ER 17:31 → TRANSITION 10-02 02:13 → TELE2 10-02 13:07 → TELE 10-08 03:27 → ICU 10-08 13:59 → TELE 10-10 12:35
PROVIDERS: ADMIT Hospitalist; ATTEND Hospitalist
PROC: 5A1955Z Respiratory Ventilation, Greater than 96 Consecutive Hours (ICD-10-PCS; principal; 2021-10-02)
PROC: 0W993ZZ Drainage of Right Pleural Cavity, Percutaneous Approach (ICD-10-PCS; 2021-10-04)
PROC: 5A1D70Z Performance of Urinary Filtration, Intermittent, Less than 6 Hours Per Day (ICD-10-PCS; 2021-10-04)
PROC: 05HB33Z Insertion of Infusion Device into Right Basilic Vein, Percutaneous Approach (ICD-10-PCS; 2021-10-04)
PROC: 0W9G3ZZ Drainage of Peritoneal Cavity, Percutaneous Approach (ICD-10-PCS; 2021-10-05)
PROC: 0BJ08ZZ Inspection of Tracheobronchial Tree, Via Natural or Artificial Opening Endoscopic (ICD-10-PCS; 2021-10-08)
DX: J98.11 Atelectasis (principal); J96.20 Acute and chronic respiratory failure, unspecified whether with hypoxia or hypercapnia; N18.6 End stage renal disease; J90 Pleural effusion, not elsewhere classified; Z68.41 Body mass index [BMI] 40.0-44.9, adult; R18.8 Other ascites; Z99.11 Dependence on respirator [ventilator] status; E44.0 Moderate protein-calorie malnutrition; E87.1 Hypo-osmolality and hyponatremia; K56.7 Ileus, unspecified; D68.9 Coagulation defect, unspecified; I12.0 Hypertensive chronic kidney disease with stage 5 chronic kidney disease or end stage renal disease; Z99.2 Dependence on renal dialysis; R13.10 Dysphagia, unspecified; Z93.0 Tracheostomy status; Z93.1 Gastrostomy status; Z20.822 Contact with and (suspected) exposure to COVID-19; F41.9 Anxiety disorder, unspecified; Z77.090 Contact with and (suspected) exposure to asbestos; F32.A Depression, unspecified; H91.3 Deaf nonspeaking, not elsewhere classified; Z88.1 Allergy status to other antibiotic agents; D63.8 Anemia in other chronic diseases classified elsewhere; E66.01 Morbid (severe) obesity due to excess calories; N62 Hypertrophy of breast; J45.909 Unspecified asthma, uncomplicated; I48.91 Unspecified atrial fibrillation; M89.9 Disorder of bone, unspecified; Z87.09 Personal history of other diseases of the respiratory system; E88.09 Other disorders of plasma-protein metabolism, not elsewhere classified; K80.20 Calculus of gallbladder without cholecystitis without obstruction; E83.39 Other disorders of phosphorus metabolism; R59.0 Localized enlarged lymph nodes; E83.42 Hypomagnesemia; E87.6 Hypokalemia; K52.9 Noninfective gastroenteritis and colitis, unspecified; Z74.01 Bed confinement status
CPT/HCPCS: 31720; 36410; 36415; 36600; 71045-TC; 71250-TC; 74018; 76882; 76942-TC; 80048-TC; 80053-TC; 80076-TC; 82040-TC; 82378; 82728-TC; 82784; 82803-TC; 83540-TC; 83615-TC; 83690-TC; 83735-TC; 84100-TC; 84155; 84155-TC; 84165; 84443-TC; 85025-TC; 85610-TC; 85730-TC; 86334; 86706; 87070-TC; 87081-TC; 87340; 88104-TC; 88108-TC; 88305-TC; 90935-TC; 92526; 92611-TC; 94002-TC; 94003-TC; 94760-TC; 94762-TC; 94799-TC; 99082-TC; A4216; A4623; A6253; A6403; A7526; C9803; G0378; J0171; J0461; J0885; J1644; J2060; J2250; J2370; J2405; J2543; J2704; J2997; J3490; J7030; J7040; J7050; J7060; P9047; U0003

== ENCOUNTER 2021-10-16 02:00 | Inpatient (IN) | payer MEDICARE, OTHER ==
[~2021-10-16] VITALS: Ht 185.4 cm; Wt 139.3 kg
[2021-10-16] VITALS (38 sets, daily range): BP systolic 66–200; BP diastolic 32–163
[~2021-10-16 02:00] MED LIST: BUPR100T5 PO; CALC1TAB30 PO; CHOL200013 PO; FAMO20TA8 PO; FERR325T23 PO; FOLI0.8C PO; GLYC2TAB21 PO; IPRA3AMP23 IH; METO25TA4 PO; MONT10TA22 PO; POLY17PO4 PO; SERT100T PO; SEVE800T8 PO; VIT1TABL46 PO
--- NOTE | 2021-10-16 02:26 | NUR ---
BIBRA FROM B/C C/O LOW SPO2 AND LOW BP. PATIENT ALERT AND ORIENTED X3. PATIENT NON AMBULATORY BROUGHT IN BY STRETCHER. PATIENT NON VERBAL BUT CAN COMMUNICATE VIA WHITE BOARD. PLACED IN BED 06 ON MONITOR AND POX.
--- NOTE | 2021-10-16 02:27 | NUR ---
RT @ BEDSIDE FOR VENT SETTING
--- NOTE | 2021-10-16 02:27 | NUR ---
Kelsey bell in [facility] - 10/16/21 at 0256 by ENRIQUE BLOOD COLLECTED AND SENT TO LAB
[2021-10-16] MEDS ORDERED: IV NS 0.9% 500 ML BAG IV ONE (02:30)
--- NOTE | 2021-10-16 02:30 | NUR ---
FACILITY NUMBER: [phone]
--- NOTE | 2021-10-16 02:32 | NUR ---
PT A/OX2-3; NONVERBAL RESPONDS TO YES & NO QUESTIONS & GESTURES. BLANCA PHILIP NOTED. ABD DISTENDED.
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
[2021-10-16] MEDS ORDERED: DILTIAZEM HCL 50 MG IV IV ONE (03:00)
--- NOTE | 2021-10-16 03:01 | NUR ---
NO IV ACCESS AT THIS TIME. NOT ABLE TO DRAW BLOOD OR GIVE IV MEDS.
--- NOTE | 2021-10-16 03:18 | NUR ---
JAVA SDET AT PT'S BEDSIDE
--- NOTE | 2021-10-16 03:20 | NUR ---
PT TOLERATING VENT SETTINGS AT 100% VT TT I:E / 1:2 PEEP
--- NOTE | 2021-10-16 03:53 | NUR ---
RAC #20G S/L PATENT AND INTACT.BLOOD COLLECTED AND SENT TO LAB
[2021-10-16] MEDS ORDERED: DILTIAZEM HCL 50 MG IV ONE ×2 (03:56→05:07)
[2021-10-16 04:31] LABS: BASOPHILS % (AUTO) 0.1 % (0.0-2.0); EOSINOPHILS % (AUTO) 0.1 % (0.0-6.0); HEMATOCRIT 33 % (39-51); HEMOGLOBIN 10.7 g/dL (13.5-17.5); LYMPHOCYTES # (AUTO) 0.3 K/uL (0.8-4.8); MEAN CORPUSCULAR HGB CONC 33 g/dl (31.0-36.0); MEAN CORPUSCULAR VOLUME 91 fL (80-96); MONOCYTES # (AUTO) 0.9 K/uL (0.1-1.30); NEUTROPHILS # (AUTO) 10.3 K/uL (1.8-8.9); NEUTROPHILS % (AUTO) 88.8 % (43.0-81.0); PLATELET COUNT (AUTO) 242 K/uL (150-450); RED BLOOD CELL COUNT(AUTO) 3.59 MIL/uL (4.5-6.0); WHITE BLOOD COUNT (AUTO) 11.6 K/uL (4.3-11.0)
[2021-10-16 04:37] LABS: CALCIUM, SERUM 8.2 mg/dL (8.5-10.1); CARBON DIOXIDE 19 mmol/L (21-32); CHLORIDE 101 mmol/L (98-107); CREATININE 3.8 mg/dL (0.6-1.3); GLUCOSE 74 mg/dL (74-106); POTASSIUM 4.4 mmol/L (3.5-5.1); SODIUM SERUM 136 mmol/L (136-145); UREA NITROGEN, BLOOD 50 mg/dL (7-18)
[2021-10-16 04:50] LABS: ALANINE AMINOTRANSFERASE 14 U/L (12-78); ALBUMIN 1.7 g/dL (3.4-5.0); ALKALINE PHOSPHATASE 94 U/L (46-116); ASPARTATE AMINOTRANSFERASE 34 U/L (15-37); BILIRUBIN,DIRECT 0.9 mg/dL (0.0-0.2); BILIRUBIN,TOTAL 2.5 mg/dL (0.2-1.0)
--- NOTE | 2021-10-16 04:58 | NUR ---
[facility] PAGED
[2021-10-16] MEDS ORDERED: DILTIAZEM HCL IV 125 MG in IV NS 0.9% 100 ML IV PRN ×2 (05:00→05:30)
--- NOTE | 2021-10-16 05:07 | NUR ---
MOVED SHEET SUBMITTED
[2021-10-16] MEDS ORDERED: DILTIAZEM HCL 25 MG IV ONE (05:08)
--- NOTE | 2021-10-16 05:20 | NUR ---
Cardizem drip started at 5mg/hr. HR 133. Will.cont. to monitor pt
[2021-10-16] MEDS ORDERED: MAGNESIUM HYDROXIDE 30 ML UDC PO PRN (05:30)
[2021-10-16] MEDS ORDERED: ONDANSETRON HCL/PF 4 MG/2 ML VIAL IVP PRN (05:30)
[2021-10-16] MEDS ORDERED: HYDROCODONE/APAP 5/325MG TABLET PO PRN (05:30)
[2021-10-16] MEDS ORDERED: Z GUARD REMEDY 4 OZ OINT TP PRN (05:30)
[2021-10-16] MEDS ORDERED: MAG HYDROX/AL HYDROX/SIMETH 30 ML UDC PO PRN (05:30)
[2021-10-16] MEDS ORDERED: ACETAMINOPHEN 325 MG TABLET PO PRN (05:30)
[2021-10-16] MEDS ORDERED: ZOLPIDEM TARTRATE 5 MG TABLET PO PRN (05:30)
--- NOTE | 2021-10-16 05:40 | NUR ---
PT CURRENT HR 127, CARDIZEM DRIP TITRATED TO 10MG/HR WILL CONT. TO MONITOR PT.
--- NOTE | 2021-10-16 06:00 | NUR ---
PT HR 120-131 CARDIZEM DRIP TITRATED TO 15MG/HR
--- NOTE | 2021-10-16 07:22 | NUR ---
ASSESSED PT ON BED AWAKE AND ALERT, ON VENT VIA TRACH, NOT IN RESPIRATORY DISTRESS, ON VITICULTURE TEACHER, KEPT RESTED AND COMFORTABLE. AWAITING ROOM INFO FOR PT ADMISSION.
[2021-10-16] MEDS ORDERED: PANTOPRAZOLE 40 MG TABLET.DR PO SCH (07:30)
[2021-10-16] MEDS ORDERED: PANTOPRAZOLE 40 MG TABLET.DR PO ONE (07:31)
--- NOTE | 2021-10-16 07:58 | NUR ---
sup gave bed. icu 252
--- NOTE | 2021-10-16 08:08 | NUR ---
REPORT GIVEN TO NURSE CLARK FROM ICU FOR DOMINICK
--- NOTE | 2021-10-16 08:30 | NUR ---
spoke to MATEO/Sola, she stated that PT just got admitted and he is not stable. RN requested for thoracentesis to be done tomorrow/ Monday08/16/22.
--- NOTE | 2021-10-16 08:35 | NUR ---
THE PATIENT IS TRANSFERED TO ASSIGNED ROOM IN STABLE CONDITION AND PER ACLS POLICY.
--- NOTE | 2021-10-16 08:45 | NUR ---
ICU/RN PT ADMITTED FROM ER ,FROM SNF WITH SOB AND A-FIB WITH RVR .CHRONIC TRACH ON THE VENT AC MODE,FIO2-40%,PEEP-5.SAT O2-100%.ON CARDIZEM DRIP FOR A-FIB, HR- 100-110 BPM AFEBRILE.NO PAIN REPORTED AT THIS TIME.PT IS DEAF.AWAKE,ALERT.ANURIC ON HD .LEFT ARM HD FISTULA.SACRAL DTI.BILATERAL LOWER LEGS CELLULITIS .RIGHT GROINS SKIN TEAR NOTED.PHOTO TAKEN PT IS 307 POUNDS .SPECIAL BED ORDERED.WOUND CONSULT ORDERED.PT VOMIT WITH COFFEE GROUND EMESIS. NOTIFIED.SUCTION PROVIDED.REPOSITION FOR COMFORT.CONTINUE MONITORING.
--- NOTE | 2021-10-16 16:00 | NUR ---
ICU/RN PT VOMIT WITH COFFEE GROUND EMESIS .NG TUBE INSERTED CONNECTED TO LOW INTERMEDIATE SUCTION 1500 ML OUTPUT.CHARGE NURSE NOTIFIED.MD NOTIFIED.SUCTION PROVIDED.REPOSITION FOR COMFORT.
--- NOTE | 2021-10-16 17:00 | NUR ---
ICU/RN PT PLACED ON SPECIAL BED, PT HAS DTI ON THE LOWER BACK.STILL ON CARDIZEM DRIP.ML INSERTED. ORDERED ON THE RIGHT UPPER ARM. CONTINUE MONITORING.
[2021-10-16] MEDS: PANTOPRAZOLE 40 MG VIAL IV SCH (18:32)
--- NOTE | 2021-10-16 19:00 | NUR ---
OUTREACH COORDINATOR NOTE RECEIVED PATIENT IN BED RESTING ON MECHANICAL VENT,NONVERBAL,DISORIENTED, IV SITE IS ON RIGHT FOREARM AND RIGHT UPPER ARM MIDLINE AND LEFT AV SHUNT FOR HD INTACT,ON CARDIZEM DRIP 10MG/10ML,NGT FOR INTERMEDIATE SUCTIONING PULLED OUT,BILATERAL LOWER EXTREMITIES EDEMA/CELLULITICS. HEAD OF THE BED ELEVATED,SAFETY MEASURE IMPLEMENT,BED IN LOW POSITION AND LOCKED,CONTINUE TO MONITOR
[2021-10-16 20:22] LABS: HEMATOCRIT 27 % (39-51); HEMOGLOBIN 8.9 g/dL (13.5-17.5); LYMPHOCYTES # (AUTO) 0.4 K/uL (0.8-4.8); LYMPHOCYTES % (AUTO) 2.5 % (20.0-44.0); MEAN CORPUSCULAR HGB CONC 33 g/dl (31.0-36.0); MEAN CORPUSCULAR VOLUME 90 fL (80-96); MONOCYTES # (AUTO) 0.8 K/uL (0.1-1.30); MONOCYTES % (AUTO) 5.9 % (2.0-12.0); NEUTROPHILS # (AUTO) 12.8 K/uL (1.8-8.9); NEUTROPHILS % (AUTO) 91.6 % (43.0-81.0); PLATELET COUNT (AUTO) 217 K/uL (150-450); RED BLOOD CELL COUNT(AUTO) 2.98 MIL/uL (4.5-6.0)
[2021-10-16 20:46] LABS: BAND % (MANUAL) 43 % (0.0-5.0); LYMPHOCYTES % (MANUAL) 6 % (16-48); METAMYELOCYTES % 6 % (0-0); MONOCYTES % (MANUAL) 9 % (0-11.0); NEUTROPHILS % (MANUAL) 36 (42-76)
--- NOTE | 2021-10-16 21:00 | NUR ---
RN NOTE CALLED LAPPER DR JARAMILLO NOTIFIED PATIENT PULLED OUT NGT,SHE ORDERED FOR BILATERAL WRIST RESTRAIN FOR SAFETY AND REINSERT NGT,NOTED AND CARRIED OUT.WILL CHECK RESTRAINS EVERY 15MINS FOR SKIN BREAKDOWN AND CIRCULATION,CONTINUE TO MONITOR
[2021-10-16] MEDS: Z GUARD REMEDY 4 OZ OINT TP SCH (21:17)
[2021-10-17] VITALS (59 sets, daily range): BP systolic 25–144; BP diastolic 18–72
--- NOTE | 2021-10-17 | NUR ---
RN NOTE TITRATE DOWN CARDIZEM TO 5MG/5L BP 104/47 HR 110 CONTINUE TO MONITOR.
[2021-10-17] MEDS ORDERED: AMIODARONE 150 MG/3 ML VIAL IV ONE (00:54)
[2021-10-17] MEDS: AMIODARONE 450 MG in IV D5W 241 ML IV PRN ×2 (01:12→07:14)
--- NOTE | 2021-10-17 01:12 | NUR ---
RN NOTE PATIENT BP IS 91/[address] JARAMILLO SHE CHANGED CARDIZEM TO AMIODARONE 1MG NOTED AND CARRIED OUT.
--- NOTE | 2021-10-17 04:00 | NUR ---
RN NOTE BP 74/[address] JARAMILLO,SHE ORDERED IV NS 500CC BOLUS, NOTED AND CARRIED OUT CONTINUE TO MONITOR.
[2021-10-17] MEDS ORDERED: IV NS 0.9% 500 ML IV ONE ×2 (04:30→06:00)
[2021-10-17 05:29] LABS: BASOPHILS # (AUTO) 0.1 K/uL (0.0-0.2); BASOPHILS % (AUTO) 0.3 % (0.0-2.0); EOSINOPHILS % (AUTO) 0.1 % (0.0-6.0); HEMATOCRIT 27 % (39-51); HEMOGLOBIN 8.6 g/dL (13.5-17.5); LYMPHOCYTES # (AUTO) 0.3 K/uL (0.8-4.8); LYMPHOCYTES % (AUTO) 1.6 % (20.0-44.0); MEAN CORPUSCULAR HGB CONC 32 g/dl (31.0-36.0); MEAN CORPUSCULAR VOLUME 92 fL (80-96); MONOCYTES # (AUTO) 1.3 K/uL (0.1-1.30); MONOCYTES % (AUTO) 6.2 % (2.0-12.0); NEUTROPHILS # (AUTO) 18.7 K/uL (1.8-8.9); NEUTROPHILS % (AUTO) 91.8 % (43.0-81.0); PLATELET COUNT (AUTO) 218 K/uL (150-450); RED BLOOD CELL COUNT(AUTO) 2.94 MIL/uL (4.5-6.0); WHITE BLOOD COUNT (AUTO) 20.3 K/uL (4.3-11.0)
--- NOTE | 2021-10-17 05:33 | NUR ---
RN NOTE BP IS 82/48 HR IS [address] JARAMILLO WITH NEW ORDER IV NS 500CC BOLUS NOTED AND CARRIED OUT.
[2021-10-17 05:43] LABS: CALCIUM, SERUM 7.2 mg/dL (8.5-10.1); CREATININE 3.9 mg/dL (0.6-1.3); MAGNESIUM 1.6 mg/dL (1.8-2.4); PHOSPHORUS 2.1 mg/dL (2.5-4.9); POTASSIUM 3.2 mmol/L (3.5-5.1)
[2021-10-17 06:00] LABS: THYROID STIMULATING HORMONE 1.011 uIU/mL (0.358-3.74)
--- NOTE | 2021-10-17 06:50 | NUR ---
RN NOTE PATIENT REMAINS ON MECHANICAL VENT ON NGT INTERMEDIATE SUCTIONING,NPO BP 89/[address] RM SHE ORDERED STEVAN VESSO PRESSOR,WILL ENDORSE NEXT COMING SHIFT FOR CONTINUATION OF CARE,KEPT CLEAN AND DRY ALL THE TIME,REPOSITIONED EVERY 2HOURS,PATIENT IS ON AMIODARONE DRIP,KEPT HEAD OF BED ELEVATED,ENDORSE NEXT COMING SHIFT FOR CONTINUATION OF CARE.
[2021-10-17 06:51] LABS: BAND % (MANUAL) 44 % (0.0-5.0); LYMPHOCYTES % (MANUAL) 5 % (16-48); METAMYELOCYTES % 5 % (0-0); MONOCYTES % (MANUAL) 9 % (0-11.0); NEUTROPHILS % (MANUAL) 37 (42-76)
--- NOTE | 2021-10-17 07:30 | NUR ---
RN NOTES PT FOUND SEMI FOWLERS DISPLAYING NO S/S OF DISTRESS, FLACC = 1 AND BILATERAL RISE AND FALL OF THE CHEST OBSERVED. NG TUBE PERFORMING LOW INTERMITTENT SUCTIONING. R UA ML IS PATIENT AND INTACT. PT IS HYPOTENSIVE, RN WILL FOLLOW PRN GUIDELINES TO CORRECT. BILATERAL SOFT WRISTS APPLIED, REPORTS OF REMOVAL OF NG TUBE FROM JEWELRY COATER RN, PULSES PALPATED AND CAP REFILL < 3 SECONDS. VSS, RN WILL MONITOR AND TREAT THROUGHOUT SHIFT. SAFETY MEASURES IN PLACE, BED LOCKED AND IN LOWEST POSITION, SIDE RAILS UP4 (RAKESH-BED), CALL LIGHT WITHIN REACH.
[2021-10-17] MEDS: PHENYLEPHRINE 100 MG in IV NS 0.9% 240 ML IV PRN ×2 (07:32→19:34)
[2021-10-17] MEDS: Z GUARD REMEDY 4 OZ OINT TP SCH ×2 (09:00→21:11)
--- NOTE | 2021-10-17 09:27 | NUR ---
INFORMED MATEO THACKER, THAT THE INR IS 1.9 , AND WE NEED AN INR OF 1.5 , HE WILL INFORM THE ORDERING MD, POSS THE PROCEDURE TO BE DONE TOMORROW
[2021-10-17] MEDS ORDERED: PHYTONADIONE INJ 10 MG/1 ML AMPUL SQ ONE (10:00)
[2021-10-17] MEDS ORDERED: LINEZOLID RTU BAG 600 MG in PREMIX 1 EA IV SCH (11:00)
--- NOTE | 2021-10-17 11:30 | NUR ---
RN NOTE DNP NEPTALI WAS INSERTING A LINE INTO PT, TAX COLLECTOR SPOKE TO DNP ABOUT PT HYPOTENSION DURING HD. DNP GAVE ORDERS, ALBUMIN 25% 25G FOR HD. RN WILL ENTER ORDERS DIRECTED.
[2021-10-17] MEDS ORDERED: ALBUMIN 25% 25 GM in PREMIX 1 EA IV PRN (12:00)
[2021-10-17] MEDS: ZOSYN IVPB 2.25 G in IV D5W 50ml IV SCH ×2 (12:00→18:23)
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
--- NOTE | 2021-10-17 12:30 | NUR ---
MD VISIT RN SPOKE TO MD ACUNA ABOUT PT'S CURRENT RR AND ALSO RELAYED INDUSTRIAL ENERGY ENGINEER KRZYSZTOF'S RECOMMENDATION FOR SEDATION. MD GAVE ORDERS: DIPRIVAN TITRATE TO REDUCE RR TO MECH VENT AC SETTING. RN WILL ENTER ORDERS DIRECTED.
[2021-10-17] MEDS: PROPOFOL 100 ML IV PRN ×2 (13:32→19:31)
[2021-10-17] MEDS ORDERED: IV D5/ 0.9% NACL 1,000 ML IV PRN (14:30)
--- NOTE | 2021-10-17 16:00 | NUR ---
MD VISIT DNP NEPTALI WAS PLACING R IJ CENTRAL LINE WHEN RN INFORMED DNP THAT STEVAN WAS BEING ACTIVELY TITRATED UP AND THAT THE UPPER LIMIT MIGHT BE REACHED. DNP ORDERED VASOPRESSIN TITRATE TO MAP > OR = 60. RN ACKNOWLEDGED, INFORMED UTILITY PIPE LAYER KRZYSZTOF OF CONVERSATION AND PROPOSED ORDERS, SHE CONCURRED.
[2021-10-17] MEDS ORDERED: VASOPRESSIN INJ 40 UNIT in IV NS 0.9% 38 ML IV PRN ×3 (17:00→17:17)
[2021-10-17] MEDS: BLOOD SUGAR DIAGNOSTIC 1 EACH STRIP IN SCH ×2 (17:48→21:38)
[2021-10-17] MEDS: PANTOPRAZOLE 40 MG VIAL IV SCH (18:17)
[2021-10-17] MEDS: DEXTROSE 50%-WATER 50 ML DISP.SYRIN IV PRN ×3 (19:26→22:27)
--- NOTE | 2021-10-17 19:30 | NUR ---
PERINATAL SPECIALIST NOTE RT CHANGE THE PEEP TO 0 DUE TO LOW BP
--- NOTE | 2021-10-17 19:42 | NUR ---
RT abg done. results given to charlie gill
--- NOTE | 2021-10-17 19:42 | NUR ---
RN NOTES PT FOUND SEMI FOWLERS DISPLAYING NO S/S OF DISTRESS, FLACC = 0 AND BILATERAL RISE AND FALL OF THE CHEST OBSERVED. NG TUBE PERFORMING LOW INTERMITTENT SUCTIONING. R UA ML IS PATIENT AND INTACT. PT IS HYPOTENSIVE, RN WILL FOLLOW PRN GUIDELINES TO CORRECT. BILATERAL SOFT WRISTS APPLIED, PULSES PALPATED AND CAP REFILL < 3 SECONDS. SBAR AND REPORT GIVEN TO SUPERVISOR LEAF SPRING REPAIR RN, ALL QUESTIONS ANSWERED. SAFETY MEASURES IN PLACE, BED LOCKED AND IN LOWEST POSITION, SIDE RAILS UP4 (RAKESH-BED), CALL LIGHT WITHIN REACH. PT ENDORSED FOR DOMINICK.
[2021-10-17] MEDS ORDERED: FUROSEMIDE 20 MG/2 ML VIAL IV SCH (20:00)
[2021-10-17] MEDS ORDERED: METOPROLOL TARTRATE 25 MG TABLET PO SCH (20:00)
--- NOTE | 2021-10-17 20:00 | NUR ---
MONUMENT STONECUTTER NOTE HELD LASIX AND LOPRESSOR DUE TO LOW BP AND PT ON PRESSORS.
--- NOTE | 2021-10-17 20:00 | NUR ---
LITHOPRESS OPERATOR NOTE PT IN BED SEDATED. ON VENT/TRACH TOLERATING THE SETTING WELL. NO DISTRESS OR DISOCOMFORT NOTED. NO S/S OF PAIN NOTED. ON TELE A FIB. LT NG ON SUCTION. NOTED BROWNISH COLOR FLUIDS. REPOSITION HIM Q2H, KEPT HIM DRY AND CLEAN. ALL NEEDS ATTENDED.
[2021-10-17 20:46] LABS: ABG BASE EXCESS -8.8 mmol/L; ABG OXYGEN SATURATION 94.4 % (92.0-98.5); ABG PCO2 38.5 mmHg (35.0-45.0); ABG PH 7.272 (7.350-7.450); ABG PO2 73.6 mmHg (75.0-100.0); AaDO2 167.3 mmHg; COHb 0.5 % (0.5-1.5); MetHb 0.3 % (0.0-1.5); O2Hb 93.6 % (94.0-97.0); SITE, ABG Right Brachial; VENT MODE, BG AC 25 450 40% +5
--- NOTE | 2021-10-17 20:47 | NUR ---
RT vt changed from 450 to 550 and peep from 0 to 5 per md order.
--- NOTE | 2021-10-17 20:51 | NUR ---
LOAN AND CREDIT MANAGER NOTE CODE BLUE ANNOUCED.
[2021-10-17] MEDS ORDERED: NOREPINEPHRINE 8MG/250ML RTU 250 ML IV ONE ×2 (20:55→22:53)
[2021-10-17] MEDS: NOREPINEPHRINE 8 MG in IV NS 0.9% 242 ML IV PRN ×2 (20:55→22:56)
--- NOTE | 2021-10-17 21:00 | NUR ---
BUTTON RIVETER NOTE CODE BLUE FINISHED. PT WITH PULSE. AND BP CONTINUE TO MONITOR HIM ..
[2021-10-17] MEDS ORDERED: NOREPINEPHRINE 32 MG in IV NS 0.9% 218 ML IV PRN ×4 (21:30)
[2021-10-17] MEDS ORDERED: Sodium Bicarbonate 150 MEQ in IV D5W 1,000 ML IV PRN (21:30)
[2021-10-17] MEDS ORDERED: EPINEPHRINE (1:1000) 10 MG in IV NS 0.9% 240 ML IV PRN ×2 (21:30→22:00)
[2021-10-17] MEDS ORDERED: NOREPINEPHRINE 8 MG in IV NS 0.9% 242 ML IV PRN (21:30)
[2021-10-17] MEDS ORDERED: SODIUM BICARBONATE SYR 50 MEQ/50 ML DISP.SYRIN ONE (22:08)
[2021-10-17] MEDS ORDERED: EPINEPHRINE (1:1000) 1 MG/ML AMPUL ONE (22:19)
[2021-10-17] MEDS ORDERED: EPINEPHRINE (1:10,000) SYRINGE 1 MG/10 ML DISP.SYRIN ONE (22:20)
--- NOTE | 2021-10-17 22:20 | NUR ---
PT PEA ON MONITOR CODE BLUE INITIATED PLEASE REFER TO CODE BLUE SHEET
--- NOTE | 2021-10-17 22:40 | NUR ---
[id number] Nursing Sup notes: Called pharmacist production reproduction manager [facility] regarding epinephrine drip preparation, per him there's a nationwide shortage of epinephrine and asked if MD can change order to vasopressin drip instead. Notified Dr. Daugehrty and said ok to change to vasopressin drip per protocol. Order noted, ICU charge nurse Daron notified.
[2021-10-17] MEDS ORDERED: VASOPRESSIN INJ 20 UNIT/ML VIAL ONE (22:56)
[2021-10-17] MEDS ORDERED: SODIUM BICARBONATE SYR 50 MEQ/50 ML DISP.SYRIN IV ONE ×2 (23:00→23:02)
--- NOTE | 2021-10-17 23:00 | NUR ---
COUNSELOR AT LAW NOTE PT WITH NO PULSE, CODE BLUE ANNOUCED. AND BEGIN WITH CPR. ER DOCTOR AT BED SIDE. RT TEAM AND CHARGE NURSE AT BED SIDE. NURSING STEMHOLE BORER AND TOPPER ALSO AT BED SIDE.
[2021-10-17] MEDS ORDERED: NOREPINEPHRINE 4 MG/4 ML AMPUL IV ONE (23:02)
[2021-10-17] MEDS ORDERED: CALCIUM CHLORIDE 1,000 MG/10 ML DISP.SYRIN IV ONE (23:02)
[2021-10-17] MEDS ORDERED: EPINEPHRINE (1:10,000) SYRINGE 1 MG/10 ML DISP.SYRIN IVP ONE (23:02)
--- NOTE | 2021-10-17 23:15 | NUR ---
SERVICE INSPECTOR NOTE ER DR Hero CHAVEZ ANNOUNCED PT AT THIS TIME.
--- NOTE | 2021-10-18 01:00 | NUR ---
PATCHING MACHINE OPERATOR NOTE CARE GIVEN. BODY MOVED TO [facility].
[2021-10-18 02:29] LABS: ABG BASE EXCESS -25.6 mmol/L; ABG OXYGEN SATURATION 58.1 % (92.0-98.5); ABG PCO2 66.1 mmHg (35.0-45.0); ABG PO2 46.5 mmHg (75.0-100.0); AaDO2 600.4 mmHg; COHb 0.1 % (0.5-1.5); MetHb 0.1 % (0.0-1.5); SITE, ABG A-Line; VENT MODE, BG AC 25 550 100% +5
== END 2021-10-17 23:03 | DRG 208 ==
LOC: ER 02:03 → UNDOADMIN 07:40 → TRANSITION 07:40 → ICU 07:59
PROVIDERS: ADMIT Nurse Practitioner Acute Care; ATTEND Nurse Practitioner Acute Care
PROC: 5A1945Z Respiratory Ventilation, 24-96 Consecutive Hours (ICD-10-PCS; principal; 2021-10-16)
PROC: 05HB33Z Insertion of Infusion Device into Right Basilic Vein, Percutaneous Approach (ICD-10-PCS; 2021-10-16)
PROC: 5A1D70Z Performance of Urinary Filtration, Intermittent, Less than 6 Hours Per Day (ICD-10-PCS; 2021-10-17)
PROC: 04HL33Z Insertion of Infusion Device into Left Femoral Artery, Percutaneous Approach (ICD-10-PCS; 2021-10-17)
PROC: 05HM33Z Insertion of Infusion Device into Right Internal Jugular Vein, Percutaneous Approach (ICD-10-PCS; 2021-10-17)
PROC: B543ZZA Ultrasonography of Right Jugular Veins, Guidance (ICD-10-PCS; 2021-10-17)
PROC: 5A2204Z Restoration of Cardiac Rhythm, Single (ICD-10-PCS; 2021-10-17)
DX: T17.990A Other foreign object in respiratory tract, part unspecified in causing asphyxiation, initial encounter (principal); A41.9 Sepsis, unspecified organism; J69.0 Pneumonitis due to inhalation of food and vomit; N18.6 End stage renal disease; E43 Unspecified severe protein-calorie malnutrition; J96.21 Acute and chronic respiratory failure with hypoxia; R65.21 Severe sepsis with septic shock; J98.11 Atelectasis; R18.8 Other ascites; Z99.11 Dependence on respirator [ventilator] status; Z68.41 Body mass index [BMI] 40.0-44.9, adult; J90 Pleural effusion, not elsewhere classified; E87.2 Acidosis; D68.9 Coagulation defect, unspecified; I12.0 Hypertensive chronic kidney disease with stage 5 chronic kidney disease or end stage renal disease; I48.91 Unspecified atrial fibrillation; Z20.822 Contact with and (suspected) exposure to COVID-19; F41.9 Anxiety disorder, unspecified; F32.A Depression, unspecified; H91.90 Unspecified hearing loss, unspecified ear; I27.20 Pulmonary hypertension, unspecified; N62 Hypertrophy of breast; Z99.2 Dependence on renal dialysis; Z93.0 Tracheostomy status; Z93.1 Gastrostomy status; R13.10 Dysphagia, unspecified; M89.9 Disorder of bone, unspecified; J98.09 Other diseases of bronchus, not elsewhere classified; K80.20 Calculus of gallbladder without cholecystitis without obstruction; J45.909 Unspecified asthma, uncomplicated; Z88.1 Allergy status to other antibiotic agents; Z79.51 Long term (current) use of inhaled steroids; Z79.899 Other long term (current) drug therapy; E66.01 Morbid (severe) obesity due to excess calories; E61.1 Iron deficiency; E88.09 Other disorders of plasma-protein metabolism, not elsewhere classified; X58.XXXA Exposure to other specified factors, initial encounter; I46.9 Cardiac arrest, cause unspecified; E87.70 Fluid overload, unspecified; H91.3 Deaf nonspeaking, not elsewhere classified
CPT/HCPCS: 31720; 36415; 36600; 71045-TC; 80048-TC; 80076-TC; 82803-TC; 82962-TC; 83735-TC; 83880; 84100-TC; 84443-TC; 84478-TC; 84484-TC; 85025-TC; 85610-TC; 85730-TC; 86704; 86706; 86803; 87081-TC; 87340; 90935-TC; 92950-TC; 93307-TC; 94003-TC; 94799-TC; A4216; A6403; A7526; C9113; C9803; G0378; J0171; J0282; J2020; J2370; J2405; J2543; J3430; J3490; J7030; J7040; J7050; J7060; P9047